=== PATIENT | female | born 1995 | race Hispanic/Latino ===

== ENCOUNTER 2017-08-30 03:02 | Outpatient (CLI) | payer MEDICAID ==
[2017-08-30] MEDS ORDERED: LACTATED RINGERS 1,000 ML IV ONE (03:54)
[2017-08-30] MEDS ORDERED: VISTARIL PO PRN (03:54)
[2017-08-30 04:51] VITALS: BP 116/81
--- NOTE | 2017-08-30 07:19 | Ultrasound Report ---
FINAL REPORT EXAM: US OB BPP WO NON-STRESS HISTORY: well being, rule out abruption post fall TECHNIQUE: Transabdominal imaging was obtained of the pelvis to obtain a biophysical profile. FINDINGS: For breathing movements, a score of 2 out of 2 was obtained. For movements, a score of 2 out of 2 was obtained. For posterior in tone, a score of 2 out of 2 was obtained. For qualitative amniotic fluid volume, a score of 2 out of 2 was obtained. The total biophysical profile score was 8 out of 8. The heart is 158 BPM. IMPRESSION: Biophysical profile score of 8 out of 8. heart rate is 158 BPM.
--- NOTE | 2017-08-30 07:20 | Ultrasound Report ---
FINAL REPORT EXAM: US OB LIMITED HISTORY: rule out abruption post fall TECHNIQUE: A limited transabdominal obstetrical sonogram was obtained. FINDINGS: There is a single viable intrauterine in cephalic presentation with an estimated gestational age of 37 weeks 1 day. The NAY is 9.5 cm which is normal. The placenta is fundal in position and is grade 1. There is no evidence of abruption. The heart is 155 BPM. A survey of organs was not obtained. IMPRESSION: No evidence of placental abruption. Cephalic presentation. heart rate is 155 BPM.
== END 2017-08-30 08:20 | disposition home or self-care (01) ==
LOC: TRG 03:02 → LD 05:34 → TRG 08:20
PROVIDERS: ATTEND Obstetrics & Gynecology
DX: O47.1 False labor at or after 37 completed weeks of gestation (principal); W19.XXXD Unspecified fall, subsequent encounter; Z3A.37 37 weeks gestation of pregnancy
CPT/HCPCS: 59025; 76815; 76819; 96360; J7120

== ENCOUNTER 2017-09-09 10:21 | Outpatient (CLI) | payer MEDICAID ==
[2017-09-09 11:43] VITALS: BP 122/80
== END 2017-09-09 11:50 | disposition home or self-care (01) ==
LOC: TRG 10:21
PROVIDERS: ATTEND Obstetrics & Gynecology
DX: O47.1 False labor at or after 37 completed weeks of gestation (principal); Z3A.38 38 weeks gestation of pregnancy
CPT/HCPCS: 59025

== ENCOUNTER 2017-09-13 11:07 | Inpatient (IN) | payer MEDICAID ==
[2017-09-13] MEDS: LACTATED RINGERS 1,000 ML IV SCH ×3 (11:25→13:53)
[2017-09-13] MEDS ORDERED: ePHEDrine SULFATE IV PRN ×2 (11:56→12:10)
[2017-09-13] MEDS ORDERED: XYLOCAINE 2% INFILTRATI ONE (11:56)
[2017-09-13] MEDS ORDERED: BRETHINE IVP PRN (11:56)
[2017-09-13] MEDS ORDERED: POLYCILLIN/NS 2 GM/100 ML 2 GM/100 ML BAG IV ONE (11:56)
[2017-09-13] MEDS ORDERED: SUBLIMAZE IV PRN (11:56)
[2017-09-13] MEDS ORDERED: BRETHINE SUB-Q PRN (11:56)
[2017-09-13] MEDS ORDERED: MINERAL OIL PO PRN (11:56)
[2017-09-13] MEDS ORDERED: PITOCin/NS 20 UNIT/1000ML DRIP 20 UNITS/1,000 ML BAG IV SCH (12:00)
[2017-09-13] MEDS ORDERED: PITOCin/NS 30 UNIT/500ML 30 UNITS/500 ML BAG IV SCH ×2 (12:00)
--- NOTE | 2017-09-13 12:05 | History and Physical Report ---
History of Present Illness Date of examination: 09/13/17 Date of admission: 09/13/17 11:10 Chief complaint: My water broke History of present illness: Pt presents with SROM at 10 am and onset of contractions. Fluid was clear. Pt having pain with contractions that are regular at this time. EDC Calculations LMP: 09/19/2017 EDC Confirmation: 09/19/2017 Gestational Age: 12 3/7 weeks Past History : 1 Term Births: 0 Premature Births: 0 Living Children: 0 Para: 0 Mult. Births: 0 Prev : 0 Prev. attempt? 0 Aborta: 0 Elect. Ab: 0 Spont. Ab: 0 Ectopics: 0 Past Medical History: Negative Past Medical History Past Surgical History: negative Past Medical History Anesthesia Complications: negative Anemia: negative Autoimmune Disorder: negative Bleeding Disorder: negative Blood Transfusions: negative Breast Disease: negative Diabetes: negative Heart Disease: negative Hypertension: negative Hepatitis/Liver Disease: negative Kidney Disease/UTI: negative Neurologic/Epilepsy/Migraines: negative Phlebitis/Varicosities: negative Psychiatric: negative Pulmonary Disease/Asthma: negative Thyroid Disease: negative Hospitalizations: negative Surgery (Non-senior net c developer): negative Abnormal PAP: negative DEBORAH Exposure: negative Infertility: negative Uterine Anomaly: negative Uterine Surgery (not C/S): negative Other Gynecologic Problems: negative Family Hx: no known family medical hx No family hx cancer Social Hx: unemployed no ETOH/Drugs/Smoking Infection History Hx of STD: none HIV Risk Eval: no Hepatitis B Risk Eval: low risk Personal hx. of genital herpes: no Partner hx. of genital herpes: no Rash, Viral, or Febrile illness since last LMP? no Genetic History Congenital Heart Defect: Mom: no Dad: no Marcus Disease: Mom: no Dad: no Thalassemia Mom: no Dad: no Neural Tube Defect Mom: no Dad: no Down's Syndrome Mom: no Dad: no Karri-Sachs Mom: no Dad: no Sickle Cell Disease/Trait Mom: no Dad: no Hemophilia Mom: no Dad: no Muscular Dystrophy Mom: no Dad: no Cystic Fibrosis Mom: no Dad: no [place] Chorea Mom: no Dad: no Mental Retardation Mom: no Dad: no Fragile X Mom: no Dad: no Other Genetic/Chromosomal Disorder Mom: no Dad: no Child w/other defect Mom: no Dad: no Enviromental Exposures Xray Exposure: no Medication, drug, or alcohol use since LMP: no Chemical/Other Exposure: no Exposure to Cat Liter: no Hx of Parvovirus (Fifth Disease): no Occupational Exposure to Children: none Active Medications (reviewed today): None Current Allergies (reviewed today): No known allergies Past History Past Medical History: no pertinent history Past Surgical History: no surgical history - Obstetrical History Expected Date of Delivery: 09/19/17 Actual Gestation: 39 Week(s) 1 Day(s) : 1 Medications and Allergies Allergies Allergy/AdvReac Type Severity Reaction Status Date / Time No Known Allergies Allergy Verified 08/30/17 04:05 Active Meds: Active Medications Ephedrine Sulfate (Ephedrine Sulfate) 10 mg IV Q2M PRN PRN Reason: Hypotension Fentanyl (Sublimaze) 100 mcg IV Q2H PRN PRN Reason: Labor Pain Ampicillin Sodium (Polycillin/Ns 1 Gm/50 Ml) 1 gm in 50 mls @ 100 mls/hr IV Q4HR RACHEL PRN Reason: Protocol Ampicillin Sodium (Polycillin/Ns 2 Gm/100 Ml) 2 gm in 100 mls @ 100 mls/hr IV ONCE ONE PRN Reason: Protocol Stop: 09/13/17 12:55 Lactated Ringer's (Lactated Ringers) 1,000 mls @ 125 mls/hr IV DIRECT RACHEL Oxytocin/Sodium Chloride (Pitocin/Ns 20 Unit/1000ml Drip) 20 units in 1,000 mls @ 125 mls/hr IV DIRECT RACHEL Oxytocin/Sodium Chloride (Pitocin/Ns 30 Unit/500ml) 30 units in 500 mls @ 1 mls /hr IV TITR RACHEL; 1 MILLIUNITS/MIN PRN Reason: Protocol Lidocaine (Xylocaine 2%) 20 ml INFILTRATI ONCE ONE Stop: 09/13/17 11:57 Mineral Oil (Mineral Oil) 30 ml PO QHS PRN PRN Reason: Constipation Review of Systems All systems: negative - Vital Signs Vital signs: Vital Signs Pulse Pulse Ox 117 H 97 09/13/17 11:30 09/13/17 11:30 Temp Pulse Resp BP Pulse Ox 113 H 99 09/13/17 12:01 09/13/17 12:01 - Obstetrical FHR: category 1 Cervical Dilatation: 7 Cervical Effacement Percentage: 100 station: 0 Results All other labs normal. Assessment and Plan - Patient Problems (1) 39 weeks gestation of Current Visit: Yes Status: Acute (2) SROM (spontaneous rupture of membranes) Current Visit: Yes Status: Acute (3) Group beta Strep positive Current Visit: Yes Status: Acute Plan to address problem: -srom x 1hr -antibx to be started -anticpate (4) Active labor at term Current Visit: Yes Status: Acute Plan to address problem: -anticipate
[2017-09-13] MEDS ORDERED: NARCAN 2 MG/2 ML IV PRN (12:10)
--- NOTE | 2017-09-13 12:11 | Anesthesia Consultation ---
Anesthesia Consult and Med Hx Date of service: 09/13/17 - Airway Anesthetic Teeth Evaluation: Good ROM Head & Neck: Adequate Mental/Hyoid Distance: Adequate Mallampati Class: Class II Intubation Access Assessment: Good - Pulmonary Exam CTA: Yes - Cardiac Exam Cardiac Exam: RRR - Pre-Operative Health Status ASA Pre-Surgery Classification: ASA2 Proposed Anesthetic Plan: Epidural, Spinal - Pre-Anesthesia Comment Pre-Anesthesia Comments: 22y F 39wks 1 Day who presents in labor. Uncomplicated preg, otherwise healthy. - Pulmonary Hx Smoking: No Hx Asthma: No - Cardiovascular System Hx Hypertension: No Hx Coronary Artery Disease: No - Central Nervous System Hx Seizures: No CVA: No Hx Psychiatric Problems: No - Gastrointestinal Hx Gastroesophageal Reflux Disease: No - Endocrine Hx Renal Disease: No Hx Liver Disease: No Hx Insulin Dependent Diabetes: No Hx Non-Insulin Dependent Diabetes: No Hx Hypothyroidism: No Hx Hyperthyroidism: No - Hematic Hx Anemia: No Hx Sickle Cell Disease: No - Other Systems Hx Alcohol Use: No
[2017-09-13] MEDS ORDERED: ZOFRAN ONE (12:12)
[2017-09-13 12:18] LABS: Hematocrit 34.3 % (30.3-42.9); Hemoglobin 11.4 gm/dl (10.1-14.3); Mean Corpuscular HGB Conc 33 % (30-34); Mean Corpuscular Hemoglobin 27 pg (28-32); Mean Corpuscular Volume 81 fl (79-97); Red Blood Count 4.25 M/mm3 (3.65-5.03); Red Cell Distribution Width 13.6 % (13.2-15.2)
[2017-09-13] MEDS ORDERED: fentaNYL-BUPIV 2 MCG/ML-0.125% 200 MCG/100 ML BAG EPIDURAL SCH (13:00)
[2017-09-13 13:13] LABS: Platelet Count 240 K/mm3 (140-440)
[2017-09-13] MEDS ORDERED: METHERGINE IM ONE (14:44)
[2017-09-13] MEDS ORDERED: MILK OF MAGNESIA PO PRN (14:59)
[2017-09-13] MEDS ORDERED: ZOFRAN IV PRN (14:59)
[2017-09-13] MEDS ORDERED: BENADRYL PO PRN (14:59)
[2017-09-13] MEDS ORDERED: PHENERGAN PR PRN (14:59)
[2017-09-13] MEDS ORDERED: TUCKS PAD TP PRN (14:59)
[2017-09-13] MEDS ORDERED: DULCOLAX PR PRN (14:59)
[2017-09-13] MEDS ORDERED: PHENERGAN PO PRN (14:59)
[2017-09-13] MEDS ORDERED: LANSINOH TP PRN (14:59)
[2017-09-13] MEDS ORDERED: TYLENOL PO PRN (14:59)
[2017-09-13] MEDS ORDERED: SODIUM CHLORIDE FLUSH SYRINGE 10 ML IV NR (15:00)
--- NOTE | 2017-09-13 15:11 | Procedure Note ---
OB Delivery Note - Delivery Date of Delivery: 09/13/17 Surgeon: CARINE BALL Estimated blood loss: 300cc - Vaginal Delivery presentation: vertex Delivery position: OA Intrapartum events: none Delivery induction: none Delivery augmentation: pitocin Delivery monitor: external FHT, external uterine Route of delivery: Delivery placenta: spontaneous Delivery cord: nuchal cord (times one clamped x 2 and cut and reduced), 3 umbilical vessels Episiotomy: midline (no extensions) Delivery laceration: 1st degree (periureth) Delivery repair: vicryl (3-0) Anesthesia: epidural Delivery comments: Delivery as above w/o complications. Nuchal cord clamped and cut and reduced. Ant shoulder and rest of delivered w/o difficulty. placed on maternal abdomen briefly and then to the [place] [facility] for evaluation. MLE was cut and repaired w/o difficulty in usual fashion. There was not extensions. EBL 300ml. Mother and infant stable in LDR. - A at 1 minute: 8 at 5 minutes: 9 Infant Gender: Female (7lbs 4 oz)
[2017-09-13] MEDS ORDERED: POLYCILLIN/NS 1 GM/50 ML 1 GM/50 ML BAG IV SCH (15:58)
[2017-09-13] MEDS: MOTRIN PO SCH (17:19)
[2017-09-13] MEDS: NORCO 5/325 PO PRN ×2 (17:22→20:35)
[2017-09-14 01:47] LABS: Hematocrit 27.9 % (30.3-42.9); Hemoglobin 9.3 gm/dl (10.1-14.3)
[2017-09-14] MEDS: NORCO 5/325 PO PRN ×2 (04:39→12:17)
--- NOTE | 2017-09-14 06:26 | Progress Note ---
Assessment and Plan - Patient Problems (1) Spontaneous vaginal delivery Onset Date: ~09/13/17 Current Visit: Yes Status: Acute Plan to address problem: Pt awake and resting quietly VSS FF below umb Lochia small Perineum slight swelling intact. H&H 05/06 Asymptomatic. Drop r/t blood loss from delivery. Doing well s/p vag delivery P: continue pathway Adv as tolerated D/C tomorrow Subjective - Subjective Date of service: 09/14/17 (A&O X 3 no c/o voiced) Principal diagnosis: Day # 1 Patient reports: appetite normal, voiding normally, pain well controlled, ambulating normally Dietrich: doing well Objective - Vital Signs Latest vital signs: Vital Signs Temp Pulse Resp BP BP BP Pulse Ox 09/14/17 00:43 97.7 F 91 H 18 100/65 09/13/17 21:00 98 F 106 H 20 110/69 09/13/17 17:22 18 09/13/17 17:19 18 09/13/17 16:45 98.7 F 96 H 18 118/71 09/13/17 15:45 98.5 F 09/13/17 14:45 98.2 F 09/13/17 14:27 118 H 96 09/13/17 14:23 92 H 88 09/13/17 14:22 117 H 98 09/13/17 14:16 113 H 97 09/13/17 14:11 107 H 98 09/13/17 14:06 97 H 130/77 98 09/13/17 14:01 99 H 99 09/13/17 13:58 107 H 94 09/13/17 13:56 101 H 97 09/13/17 13:52 111 H 93 09/13/17 13:51 112 H 98 09/13/17 13:46 105 H 97 09/13/17 13:41 112 H 95 09/13/17 13:40 110 H 84 09/13/17 13:36 111 H 127/68 96 09/13/17 13:35 110 H 93 09/13/17 13:34 114 H 119/68 09/13/17 13:32 106 H 123/64 09/13/17 13:31 101 H 97 09/13/17 13:30 103 H 117/69 09/13/17 13:28 104 H 120/63 09/13/17 13:26 102 H 130/73 96 09/13/17 13:22 110 H 120/72 09/13/17 13:21 116 H 97 09/13/17 13:20 114 H 120/75 09/13/17 13:18 123 H 121/75 09/13/17 13:16 133 H 99 09/13/17 13:11 118 H 97 09/13/17 13:07 116 H 126/74 09/13/17 13:06 118 H 99 09/13/17 13:01 122 H 100 09/13/17 12:56 122 H 99 09/13/17 12:51 117 H 98 09/13/17 12:46 120 H 100 09/13/17 12:41 118 H 99 09/13/17 12:36 129 H 100 09/13/17 12:31 117 H 100 09/13/17 12:26 116 H 98 09/13/17 12:21 114 H 98 09/13/17 12:16 122 H 99 09/13/17 12:11 116 H 100 09/13/17 12:06 120 H 100 09/13/17 12:05 18 09/13/17 12:01 113 H 99 09/13/17 11:56 121 H 99 09/13/17 11:45 117 H 96 09/13/17 11:40 115 H 97 09/13/17 11:35 112 H 98 09/13/17 11:30 117 H 97 09/13/17 11:15 98.0 F 118 H 18 126/74 98 Intake and Output 09/13/17 09/13/17 09/14/17 14:59 22:59 06:59 Intake Total 1033.3 240 240 Output Total 3 Balance 1033.3 240 237 Intake: IV 1033.3 Lactated Ringers 1,000 ml 1033.3 @ 125 mls/hr IV DIRECT RACHEL Rx#:[id number] Intake, Free Water 240 240 Output: Urine 3 Void 3 Other: Total, Output Amount 3 Weight 190 lb Estimated Blood Loss 300 Patient Weight 09/14/17 06:59 Weight 190 lb - Exam Breasts: Present: normal Cardiovascular: Present: Regular rate Lungs: Present: Clear to auscultation Abdomen: Present: normal appearance, soft, normal bowel sounds Vulva: both: normal Uterus: Present: normal, firm, fundal height below umbilicus Extremities: Present: normal Incision: Present: normal, edematous, intact - Labs Labs: Abnormal lab results 09/13/17 09/14/17 Range/Units 12:05 01:16 WBC 21.6 H (4.5-11.0) K/mm3 Hgb 9.3 L (10.1-14.3) gm/dl Hct 27.9 L D (30.3-42.9) % MCH 27 L (28-32) pg
[2017-09-14] MEDS: MOTRIN PO SCH ×2 (08:12→16:21)
--- NOTE | 2017-09-14 10:52 | Progress Note ---
Subjective Date of service: 09/14/17 Principal diagnosis: Day # 1 Interval history: 1st day after normal vaginal delivery Patient is in the bed, comfortable. Pain is well controlled with pain meds. Ambulated well. No residual neurological deficit. No anesthesia complications Objective - Constitutional Vitals: Vital Signs - 12hr 09/14/17 09/14/17 00:43 09:11 Temperature 97.7 F 98 F Pulse Rate 91 H 84 Respiratory 18 18 Rate Blood Pressure 100/65 96/62 [Left] - Labs CBC & Chem 7: 09/14/17 01:16 Labs: Abnormal lab results 09/13/17 09/14/17 Range/Units 12:05 01:16 WBC 21.6 H (4.5-11.0) K/mm3 Hgb 9.3 L (10.1-14.3) gm/dl Hct 27.9 L D (30.3-42.9) % MCH 27 L (28-32) pg
[2017-09-14] MEDS ORDERED: BOOSTRIX IM ONE (14:59)
[2017-09-15] MEDS: MOTRIN PO SCH ×2 (01:30→12:09)
[2017-09-15] MEDS: NORCO 5/325 PO PRN (01:33)
--- NOTE | 2017-09-15 08:05 | Discharge Summary ---
Providers - Providers Date of Admission: 09/13/17 11:10 Date of discharge: 09/15/17 (desires d/c home) Attending physician: CARINE BALL Primary care physician: ЕКАТЕРИНА TABARES Hospitalization Reason for admission: labor Condition: Good Procedures: vaginal delivery Hospital course: uncomplicated vaginal delivery and course Disposition: DC-01 TO HOME OR SELFCARE - Discharge Diagnoses (1) Spontaneous vaginal delivery Status: Acute Core Measure Documentation - Palliative Care Palliative Care/ Comfort Measures: Not Applicable - Core Measures Any of the following diagnoses?: none Exam - Constitutional Vitals: Temp Pulse Resp BP Pulse Ox 97.9 F 102 H 16 109/70 99 09/15/17 07:58 09/15/17 07:58 09/15/17 07:58 09/15/17 07:58 09/15/17 01:37 General appearance: Present: no acute distress, well-nourished - EENT Eyes: Present: PERRL ENT: hearing intact, clear oral mucosa - Neck Neck: Present: supple, normal ROM - Respiratory Respiratory effort: normal Respiratory: bilateral: CTA - Cardiovascular Heart Sounds: Present: S1 & S2. Absent: rub, click - Extremities Extremities: pulses symmetrical, No edema Peripheral Pulses: within normal limits - Abdominal General gastrointestinal: Present: soft, non-tender, non-distended, normal bowel sounds Female genitourinary: Present: normal - Integumentary Integumentary: Present: clear, warm, dry - Musculoskeletal Musculoskeletal: gait normal, strength equal bilaterally - Psychiatric Psychiatric: appropriate mood/affect, intact judgment & insight - Neurologic Neurologic: CNII-XII intact, moves all extremities - Additional findings Additional findings: fundus firm, lochia scant, well Plan Activity: advance as tolerated Diet: regular Special Instructions: no heavy lifting Follow up with: ЕКАТЕРИНА TABARES MD [Primary Care Provider] - 10/13/17 (Congratulations! Please call [phone] to schedule your visit in 4 weeks. Call for any questions or concerns. )
[2017-09-15 16:58] VITALS: BP 118/64
== END 2017-09-15 15:00 | disposition home or self-care (01) | DRG 775 ==
LOC: TRG 11:07 → LD 11:10 → OB 16:43
PROVIDERS: ADMIT Obstetrics & Gynecology; ATTEND Obstetrics & Gynecology
PROC: 10E0XZZ Delivery of Products of Conception, External Approach (ICD-10-PCS; principal; 2017-09-13)
PROC: 0HQ9XZZ Repair Perineum Skin, External Approach (ICD-10-PCS; 2017-09-13)
PROC: 3E0R3BZ Introduction of Anesthetic Agent into Spinal Canal, Percutaneous Approach (ICD-10-PCS; 2017-09-13)
PROC: 00HU33Z Insertion of Infusion Device into Spinal Canal, Percutaneous Approach (ICD-10-PCS; 2017-09-13)
PROC: 3E0234Z Introduction of Serum, Toxoid and Vaccine into Muscle, Percutaneous Approach (ICD-10-PCS; 2017-09-14)
DX: O99.824 Streptococcus B carrier state complicating childbirth (principal); O69.81X0 Labor and delivery complicated by cord around neck, without compression, not applicable or unspecified; O71.82 Other specified trauma to perineum and vulva; Z3A.39 39 weeks gestation of pregnancy; Z37.0 Single live birth; Z23 Encounter for immunization
CPT/HCPCS: 36415; 85014; 85018; 85027; 86592; 86850; 86900; 86901; 99211; A6250; G0463; J0290; J2210; J2405; J2590; J3010; J7120